=== PATIENT | female | born 1990 | race Caucasian/White ===

== ENCOUNTER 2022-03-18 10:09 | Outpatient (CLI) | payer OTHER, SELFPAY ==
[2022-03-18 15:38] LABS: Albumin* 4.9 g/dL (3.3-5.0); Chloride* 103 mmol/L (96-114); Sodium* 138 mmol/L (135-149)
[2022-03-18 15:39] LABS: Potassium* 4.6 mmol/L (3.6-5.1)
[2022-03-18 15:40] LABS: Cholesterol* 179 mg/dL (90-199)
[2022-03-18 15:41] LABS: Alanine Aminotransferase* 13 U/L (4-35); Alkaline Phosphatase* 37 U/L (40-150); Aspartate Amino Transferase* 22 U/L (12-35); Bilirubin Total* 1.3 mg/dL (0.1-1.5); Blood Urea Nitrogen* 16 mg/dL (5-24); Carbon Dioxide* 27 mmol/L (20-32); Creatinine* 0.6 mg/dL (0.5-1.5); Estimated Glomerular Filt Rate 121 ml/min; Glucose* 97 mg/dL (60-115); Triglycerides* 48 mg/dL (40-149)
[2022-03-18 15:42] LABS: Calcium* 9.7 mg/dL (8.4-10.6); HDL Cholesterol* 64 mg/dL (>=50); LDL Cholesterol Calculated 105 mg/dL (<100)
== END 2022-03-18 10:10 | disposition home or self-care (01) ==
PROVIDERS: PCP Family Medicine; Visit Provider Family Medicine
DX: Z00.00 Encounter for general adult medical examination without abnormal findings (principal); Z13.1 Encounter for screening for diabetes mellitus; Z13.6 Encounter for screening for cardiovascular disorders
CPT/HCPCS: 80053; 80061

== ENCOUNTER 2022-03-29 08:24 | Outpatient (CLI) | payer OTHER, SELFPAY ==
--- NOTE | 2022-03-29 08:45 | CRLHL7_ITS ---
For Patients: As a result of the Cures Act, medical imaging exams and procedure reports are released immediately into your electronic medical record. You may view this report before your referring provider. If you have questions, please contact your health care provider. DIGITAL DIAGNOSTIC LEFT MAMMOGRAM USING TOMOSYNTHESIS AND COMPUTER-AIDED DETECTION LEFT BREAST ULTRASOUND CLINICAL HISTORY: LEFT breast lump. COMPARISON: None. TECHNIQUE: Digital LEFT mammogram in two projections. Tomosynthesis and CAD utilized. Real-time ultrasound imaging of LEFT breast with imaging documentation. BREAST COMPOSITION: The breast is extremely dense, which limits the sensitivity of mammography. FINDINGS: 3D CC/MLO LEFT breast mammogram submitted. No suspicious masses or architectural distortion. No adenopathy or suspicious calcifications. Targeted LEFT breast ultrasound performed in the area of concern 3-6 o`clock lower outer quadrant. Normal dense fibroglandular tissue. No findings concerning for malignancy. IMPRESSION: Normal dense tissue. No malignancy. No fibrocystic change or fluid collection. RECOMMENDATIONS: Clinical follow-up. Age-appropriate screening mammography. Results and recommendations discussed with the patient. BI-RADS Category 1: Negative A lay language report of this examination will be provided to the patient. Dictated by Carlos Hazel MD @ 03/29/2022 11:02:22 AM jj/Dictated by: Carlos Hazel MD @ 03/29/2022 11:02:00 AM (Electronically Signed)
--- NOTE | 2022-03-29 09:15 | CRLHL7_ITS ---
For Patients: As a result of the Cures Act, medical imaging exams and procedure reports are released immediately into your electronic medical record. You may view this report before your referring provider. If you have questions, please contact your health care provider. PLEASE SEE DIGITAL DIAGNOSTIC LEFT MAMMOGRAM PERFORMED SAME DAY CRL:rell zacarias/Dictated by: Carlos Hazel MD @ 03/29/2022 10:58:00 AM (Electronically Signed)
== END 2022-03-29 08:25 | disposition home or self-care (01) ==
LOC: MAMMO 08:25
PROVIDERS: PCP Family Medicine; Visit Provider Family Medicine
DX: N63.20 Unspecified lump in the left breast, unspecified quadrant (principal); R92.2 Inconclusive mammogram
CPT/HCPCS: 76642; 77065; G0279

== ENCOUNTER 2022-04-22 08:00 | Outpatient (RCR) | payer OTHER, SELFPAY | END 2022-07-10 13:45 | disposition home or self-care (01) | PROVIDERS: PCP Family Medicine; Visit Provider Family Medicine | DX: M62.81 Muscle weakness (generalized) (principal); Z51.89 Encounter for other specified aftercare | CPT/HCPCS: 97110; 97140; 97161 ==

== ENCOUNTER 2022-06-11 16:15 | Outpatient (CLI) | payer OTHER, SELFPAY | END 2022-06-11 16:16 | disposition home or self-care (01) | LOC: LKVREF 06-14 08:48 | PROVIDERS: PCP Family Medicine; Visit Provider Nurse Practitioner Family | DX: R30.0 Dysuria (principal); N39.0 Urinary tract infection, site not specified | CPT/HCPCS: 87086 ==

== ENCOUNTER 2022-07-15 14:54 | Outpatient (CLI) | payer OTHER, SELFPAY ==
--- NOTE | 2022-07-15 15:00 | CRLHL7_ITS ---
For Patients: As a result of the Century Cures Act, medical imaging exams and procedure reports are released immediately into your electronic medical record. You may view this report before your referring provider. If you have questions, please contact your health care provider. CLINICAL HISTORY: Missing IUD strings TECHNIQUE: 2D smith scale and color Doppler images were acquired of the pelvis using a transvaginal approach. FINDINGS: On transvaginal imaging, the myometrium has a normal uniform echotexture. Intrauterine device is present within the lower uterine segment. The endometrium measures 8 millimeters in the uterine fundus. The left ovary measures 2.9 x 1.4 x 1.6 cm in size and the right ovary measures 4.1 x 2.0 x 2.6 cm. The ovaries demonstrate normal arterial and venous blood flow on color Doppler analysis. Trace physiologic free fluid noted. IMPRESSION: IUD in the lower uterine segment. Dictated by Carlos Hazel MD @ 07/16/2022 9:54:46 AM (Electronically Signed)
== END 2022-07-15 14:55 | disposition home or self-care (01) ==
LOC: US 14:55
PROVIDERS: PCP Family Medicine; Visit Provider Physician Assistant
DX: T83.32XA Displacement of intrauterine contraceptive device, initial encounter (principal)
CPT/HCPCS: 76830

== ENCOUNTER 2022-08-16 16:11 | Outpatient (CLI) | payer OTHER, SELFPAY | END 2022-08-16 16:12 | disposition home or self-care (01) | LOC: NFLDREF 08-18 06:15 | PROVIDERS: PCP Family Medicine; Referring Provider Family Medicine; Visit Provider Obstetrics & Gynecology | DX: Z01.812 Encounter for preprocedural laboratory examination (principal); T83.32XA Displacement of intrauterine contraceptive device, initial encounter; R00.2 Palpitations | CPT/HCPCS: 84443 ==

== ENCOUNTER 2022-08-29 07:48 | Day surgery (SDC) | payer OTHER, SELFPAY ==
[2022-08-29] VITALS (12 sets, daily range): BP systolic 91–108; BP diastolic 63–84; PULSE 65–100; RESP 12–18; TEMP 36.3–36.7; O2SAT 98–100; BMI 21.5
--- NOTE | 2022-08-29 08:03 | SUR.PREOP ---
Patient provided home covid negative results to RN.
[2022-08-29 08:05] LABS: Ur HCG Qualitative* Negative (Negative)
[2022-08-29] MEDS: SODIUM CHLORIDE 0.9 % (FLUSH) 10 ML SYRINGE IVF (08:20)
[2022-08-29] MEDS: LACTATED RINGERS 1000 ML 1,000 ML 100 ML IV (08:20)
--- NOTE | 2022-08-29 10:03 | W.ANESCHARGE ---
Anesthesia Charges Start Date/Time Anesthesia Start Date: 08/29/22 Anesthesia Start Time: 09:20 Stop Date/Time Anesthesia Stop Date: 08/29/22 Anesthesia Stop Time: 10:48
[2022-08-29] MEDS: BUPIVACAINE 0.25% 30 ML INJECTION (10:30)
--- NOTE | 2022-08-29 10:56 | P.GYNPRC_ITS ---
Procedure Note Date Seen: 08/29/22 Procedure Details: PREOPERATIVE DIAGNOSIS: Intra-abdominal IUD POSTOPERATIVE DIAGNOSIS: Intra-abdominal IUD Suspected stage I endometriosis PROCEDURE: Laparoscopy with retrieval of intra-abdominal IUD, peritoneal biopsy SURGEON: Dorothy Murdock MD ANESTHESIA: General IV FLUIDS: 900 mL crystalloid URINE OUTPUT: 150 mL EBL: 5 mL FINDINGS: 1. Upon pelvic exam under anesthesia, the cervix and vagina were normal in appearance. Uterus was mobile and anteverted, of normal size and texture. There were no palpable adnexal masses. 2. Upon laparoscopy, survey of the upper abdomen revealed a normal appearance to the inferior edge of the liver, gallbladder and stomach. The IUD was entangled within the omentum. Bowels were grossly normal appearance, as was the appendix. Survey of the pelvis revealed normal appearance to the uterus. Bilateral tubes and ovaries were normal in appearance. The cul-de-sac exhibited a superficial single macule with a typical appearance of a powder burn lesion near the origin of the right uterosacral ligament. The bladder reflection was normal in appearance. COMPLICATIONS: None PROCEDURE IN DETAIL: Patient was taken to the operating room with IV running. She was positioned in dorsal lithotomy position with her legs fully supported in Yellofin stirrups. General anesthesia was administered. She was prepped and draped in the usual sterile fashion. Bimanual exam was performed for the above- noted findings. Speculum was inserted. A single-toothed uterine manipulator was inserted through the cervix into the lower uterine segment, and affixed to the anterior cervical lip. Speculum was removed. Sullivan catheter was placed. Patient's legs were placed in neutral position. Attention was turned to patient's abdomen. The infraumbilical area was infiltrated with small amount of Marcaine. An infraumbilical incision was made with a scalpel and carried through to the underlying layer of fascia with a hemostat. The 5 mm Fios Kii trocar was assembled with laparoscope within, and insufflator attached. While tenting up the abdomen manually, the trocar was passed through the anterior abdominal wall into the peritoneal cavity. Trocar was removed. Pneumoperitoneum was achieved. Survey of abdomen and pelvis revealed the above-noted findings. Two additional port sites were created. The first was in the patient's left lower quadrant, just superior medial to the left ASIS. The second was a hand's breath superior to and slightly medial to the first. Each was infiltrated with small amount of Marcaine prior to incision. A 5 mm incision was made at each site, making sure the large vessels were out of harm's way. A 5 mm Fios Kii port was inserted at each site, under direct visualization and without complication. The balloon on each of the 3 ports was inflated, holding each in place. The IUD was gently untangled from the surrounding omentum, and was easily removed through the port. The above-described suspected endometriosis in the cul-de-sac was grasped with [place] forceps and tented away from the pelvic sidewall. It was sharply excised with laparoscopic tae. Hemostasis of the excision bed was achieved with monopolar cautery. Small amount of blood the suction from the patient's pelvis. All instruments removed from the ports. Pneumoperitoneum was released. The balloons on each port were deflated, and the ports were removed. Hemostasis of the laparoscopic incisions were achieved with monopolar cautery. The skin of each port site was closed with a subcuticular stitch of 4-0 Monocryl. Surgical glue was applied above this. The uterine manipulator was removed, and hemostasis of the cervix was noted. Sullivan catheter was removed. Patient tolerated procedure well and was returned to recovery area in stable condition.
[2022-08-29] MEDS: OXYCODONE 5 MG TABLET PO (11:46)
== END 2022-08-29 13:09 | disposition home or self-care (01) ==
PROVIDERS: PCP Family Medicine; Visit Provider Obstetrics & Gynecology
PROC: (CPT 58661; principal; 2022-08-29 09:00)
DX: T83.32XA Displacement of intrauterine contraceptive device, initial encounter (principal); N80.3 Endometriosis of pelvic peritoneum
CPT/HCPCS: 58301; 49321; 00840; 36415; 81025; 84703; 86850; 86900; 86901; 88305; A9270; J0330; J1100; J2250; J2370; J2405; J2704; J3010; J3490; J7120

== ENCOUNTER 2023-05-12 18:11 | Emergency (ER) | payer BC, SELFPAY ==
[2023-05-12 18:21] VITALS: BP 119/79; PULSE 89; RESP 14; TEMP 36.9; O2SAT 99; BMI 20.7
--- NOTE | 2023-05-12 18:37 | ED_ITS ---
HPI - Abdominal Pain General Time Seen by Provider: 18:37 Date Seen: 05/12/23 Chief Complaint: Abdominal Pain Stated Complaint: Abdominal pain Time Seen by Provider: 05/12/23 18:24 Source: patient, RN notes reviewed and old records reviewed Mode of arrival: ambulatory Limitations: no limitations History of Present Illness HPI narrative: This 33yo female presents to ED with worsening epigastric pain. She was in clinic today, saw Dr. Vaughan, note reviewed. She has history of suspected ulcers, no confirmation with EGD ever. First time was before migration of IUD and exploratory laparoscopy, second time after. She changed diet/eating habits first time, second time was in conjunction post-surgery and they thought related to oxycodone use and started omeprazole. She was started on pantoprazole, first dose around 4pm today, pain is worsening. No fever, no vomiting. Does feel nausea but thinks that is from the pain worsening. Possible remote chance of but she doubts it. Current pain since Friday. If her clinic note she describes this as a burning sensation, would get relief with belching, did start omeprazole with some relief yesterday. She stated it was a 9 pain like hunger. It was epigastric without radiation. Before she went to the clinic this morning it was more severe but she denied that the pain was waxing and waning. She notes she had 4 bowel movements yesterday which is not usual for her, can tend towards constipation. She did know if that is of bowels were normal consistency, normal color, no floating that maybe has some mucus. She does not drink any significant alcohol. She had a CBC, comprehensive metabolic panel and lipase drawn in clinic. Only the CBC is back. MD elicited complaint: abdominal pain Related Data Previous Rx's Medication Instructions Recorded pantoprazole 40 mg tablet,delayed 40 mg PO QDAY #30 tabs 05/12/23 release sucralfate 1 gram tablet (Carafate) 1 g PO BID #60 tabs 05/12/23 Allergies Allergy/AdvReac Type Severity Reaction Status Date / Time No Known Drug Allergies Allergy Verified 05/12/23 18:21 Review of Systems Status of ROS Reports: 6 or more systems reviewed and unremarkable except as noted in History and below [facility] Medical History (Updated 05/12/23 @ 21:05 by Mackenzie Todd MD) IUD migration ?T83.32XA - Displacement of intrauterine contraceptive device, initial encounter (ICD-10) Normal hysteroscopy ?Z01.89 - Encounter for other specified special examinations (ICD-10) Rh negative status during ?O26.899 - Other specified related conditions, unspecified trimester (ICD-10) ?Z67.91 - Unspecified blood type, rh negative (ICD-10) Normal spontaneous vaginal delivery ?O80 - Encounter for full-term uncomplicated delivery (ICD-10) Surgical History Normal endoscopy History of wisdom tooth extraction ?K08.409 - Partial loss of teeth, unspecified cause, unspecified class (ICD- 10) Family History Paternal Grandmother Breast cancer Father High blood pressure High cholesterol Social History Narrative: Lives in [place] with and 2 kids. 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 Exercises 2 to 3 times a week. Nonsmoker. Alcohol use: 2-3 per week. No recreational drugs. Smoking Status: Never smoker Do you use any of these nicotine containing products: None Second hand tobacco smoke exposure: No How often do you have a drink containing alcohol: 2-3 times a week Alcohol type: wine and hard liquor How many standard drinks containing alcohol do you have on a typical day: 1 or 2 How often do you have six or more drinks on one occasion: Never AUDIT-C Alcohol total score: 3 Non-prescribed substance use: denies use Caffeine: Yes (1-2 c/day) Are you using contraception or practicing any form of control: No (Mirena) service: No Exam Const: Vital Signs, click to edit/add: Vital Signs - 24 hr 05/12/23 18:21 05/12/23 19:17 Temperature 98.5 F Pulse Rate [Pulse Oximeter] 89 Respiratory Rate 14 Blood Pressure [Ri ght Upper Arm] 119/79 Pulse Oximetry 99 98 Oxygen Delivery Me thod Room Air This is a 33-year-old female that is appearing uncomfortable, leaning forward in bed but is able to relax back for me to examine her. Pupils equal round, sclera clear, conjugate gaze. Speech is normal. Neck supple, no masses or adenopathy. Lungs are clear, good air entry, no wheezing or crackles. CV regular rate rhythm, no murmur, normal S1-S2, no S3-S4. Abdomen is flat, normal bowel sounds, definite epigastric pain but not really any right upper quadrant or left upper quadrant pain. No definitive rebound or guarding, certainly no masses noted. Her belly is absolutely not distended. Skin without any rash, no lower extremity edema. Documenting provider has reviewed patient's vital signs: yes Course Course ED Course: Will place an IV, give her some IV fluids, discussed pain management. We will give her 4 mg IV morphine and 4 mg IV Zofran for nausea control. Discussed imaging, we discussed ultrasound as well as CT imaging. Given she has epigastric pain, do wonder about possibility of pancreatitis that could be stemming from gallbladder disease. She has had some recurrent episodes in the past. It certainly could be that this is gastric in nature, may need an EGD which would not be done emergently here nor does not seem to be indicated from current presentation. Will get a full complement of labs, consider imaging with x-ray or CT potentially. Will be ordering a limited abdomen ultrasound to look at the gallbladder. If lipase is elevated, will certainly proceed with CT imaging. Reevaluation(s) Time of Reevaluation #1: 21:01 Reevaluation #1: Reviewed negative abdominal ultrasound. We reviewed that specifically this mostly looks at the gallbladder, she has no evidence of any gallstones or any infection called cholecystitis. Her labs are certainly reassuring, normal C reactive protein, no elevated white blood count, liver enzymes and lipase are normal. Nothing concerning with her urinalysis, negative urine test. Discussed with her and her next steps that we could do in the ER would be to do a flat and upright which looks at the bowels, specifically shows thus any concerns for obstruction, can show as constipation. We also discussed the possibility of doing CT imaging. She is completely comfortable now. She is worried about pain at home, I do think we can give her IV dose of Toradol. Reviewed with her that we really do not like starting any narcotics when we do not have a specific etiology. If there is any possibility of constipation, narcotics can make this worse. They had a chance to discuss, are opting to not do any further imaging of any sort at this time. Will give her the dose of IV Toradol to make sure she has some longer pain control on board. We also discussed that I would try to send in a prescription firm [employer], see if her insurance covers it. We did review Pepto-Bismol or Maalox. She is not having any definite reflux symptoms but this is been a consideration in the pa [facility]. It does sound as if she has had a scope before which did not show any pathology per her report as I was discussing her labs and consideration for further testing. Vital Signs Vital signs: Initial Vital Signs Temperature 98.5 F 05/12/23 18:21 Temperature Source Temporal Artery Scan 05/12/23 18:21 Pulse Rate 89 05/12/23 18:21 Pulse Rhythm Regular 05/12/23 18:21 Respiratory Rate 14 05/12/23 18:21 Blood Pressure 119/79 05/12/23 18:21 Blood Pressure Mean 92 05/12/23 18:21 Blood Pressure Position Sitting 05/12/23 18:21 Pulse Oximetry 99 05/12/23 18:21 Oxygen Delivery Method Room Air 05/12/23 18:21 Vital Signs Temperature 98.5 F 05/12/23 18:21 Pulse Rate 89 05/12/23 18:21 Respiratory Rate 14 05/12/23 18:21 Blood Pressure 119/79 05/12/23 18:21 Pulse Oximetry 99 05/12/23 18:21 Oxygen Delivery Method Room Air 05/12/23 18:21 Temperature 98.5 F 05/12/23 18:21 Pulse Rate 89 05/12/23 18:21 Respiratory Rate 14 05/12/23 18:21 Blood Pressure 119/79 05/12/23 18:21 Pulse Oximetry 98 05/12/23 19:17 Oxygen Delivery Method Room Air 05/12/23 18:21 Medications Administered Medications: Discontinued Medications Generic Name Dose Route Start Last Admin Trade Name Freq PRN Reason Stop Dose Admin Sodium Chloride 1,000 mls @ 500 mls/hr 05/12/23 18:45 05/12/23 19:05 0.9 % Sodium Chloride 1000 Ml IV 05/12/23 20:44 500 mls/hr .Q2H JOVI Administration Ketorolac Tromethamine 15 mg 05/12/23 21:12 05/12/23 21:19 Ketorolac 15 Mg/Ml Inj IVP 05/12/23 21:13 15 mg ONCE ONE Administration Morphine Sulfate 4 mg 05/12/23 18:44 05/12/23 19:05 Morphine 4 Mg/Ml Inj IVP 05/12/23 18:45 4 mg ONCE ONE Administration Ondansetron HCl 4 mg 05/12/23 18:44 05/12/23 19:05 Ondansetron 2 Mg/Ml Inj IVP 05/12/23 18:45 4 mg ONCE ONE Administration MDM - Abdominal Pain Lab Data Attestation: I reviewed the patient's lab results. Labs: Lab Results 05/12/23 05/12/23 05/12/23 Range/Units 18:35 19:05 19:05 WBC 9.07 (4.50-11.00) K/uL RBC 4.74 (4.00-5.20) m/uL Hgb 14.3 (12.0-16.0) gm/dL Hct 42.1 (33.0-51.0) % MCV 89 (80-100) fL MCH 30 (26-34) pg MCHC 34 (32-36) gm/dL RDW Coeff of Gloria 11.3 L (11.5-15.5) % Plt Count 212 (140-440) K/uL Neut % (Auto) 86.9 H (42.0-72.0) % Lymph % (Auto) 9.3 L (20-44) % [place] % (Auto) 3.4 (0.0-11.0) % Eos % (Auto) 0.0 (0.0-7.0) % Baso % (Auto) 0.2 (0.0-3.0) % Neut # (Auto) 7.90 H (1.7-7.0) K/uL Lymph # (Auto) 0.80 L (0.90-2.90) K/uL [place] # (Auto) 0.30 (0.00-0.90) K/UL Eos # (Auto) 0.00 (0.00-0.50) K/uL Baso # (Auto) 0.02 (0.00-0.30) K/uL Abs Immat Gran (auto) 0.02 (0.00-0.30) K/uL Imm/Tot Granulo (auto) 0.2 % Sodium 136 (135-149) mmol/L Potassium 3.5 L (3.6-5.1) mmol/L Chloride 103 (96-114) mmol/L Carbon Dioxide 22 (20-32) mmol/L Anion Gap 11 (7-15) mEq/L BUN 12 (5-24) mg/dL Creatinine 0.6 (0.5-1.5) mg/dL Estimated Creat Clear 132.44 Estimated GFR 121 ml/min Glucose 109 (60-115) mg/dL Lactate 1.2 (0.5-1.9) mmol/L Calcium 9.5 (8.4-10.6) mg/dL Total Bilirubin 0.9 (0.1-1.5) mg/dL Direct Bilirubin Cancelled 0.0 AST 20 (12-35) U/L ALT 13 (4-35) U/L Alkaline Phosphatase 42 (40-150) U/L C-Reactive Protein < 0.5 L (0.5-1.0) mg/dL Total Protein 7.6 (6.0-8.3) g/dL Albumin 5.0 (3.3-5.0) g/dL Lipase 188 (23-300) U/L Urine Color Yellow (Yellow) Urine Appearance Clear (Clear) Urine pH 6.5 (5.0-8.5) Ur Specific [place] 1.025 (1.000-1.030) Urine Protein Negative (Negative) Urine Glucose (UA) Negative (Negative) Urine Ketones Trace A (Negative) Urine Blood 2+ A (Negative) Urine Nitrite Negative (Negative) Urine Bilirubin Negative (Negative) Urine Urobilinogen 0.2 (0.2-1.0) Ur Leukocyte Esterase 1+ A (Negative) Urine RBC 2-5 A (0-2) Urine WBC 2-5 (0-5) Ur Squamous Epith Cells Few (None-Few) Urine Bacteria Few A (None) Urine HCG, Qual Negative (Negative) Imaging Data US - abdomen: Attestation: I have reviewed the pertinent imaging results. Radiologist's impression: Patient: BENOIT ARGUETA Facility:?[facility] Patient ID:?[id number] Site Patient ID:?[id number]. Site :?[id number] Study:?US Abdomen/Pelvis -05/12/2023 7:58:39 PM Ordering Physician:Luther Mann Final Report: INDICATION: Worsening epigastric pain. TECHNIQUE: Ultrasound abdomen limited. Sonographic images of the right upper quadrant were obtained using smith-scale and color Doppler images. COMPARISON: None. FINDINGS: Liver: Normal in size and echotexture. No suspicious masses. No intrahepatic biliary dilatation. Portal vein is patent with blood flow toward the liver. Gallbladder: No stones or sludge. Normal wall thickness. No pericholecystic fluid. Common bile duct: 4 mm. Pancreas: Unremarkable. Right kidney: Normal in size. Normal echotexture and cortex. No suspicious masses, stones, or hydronephrosis. Vasculature: Proximal abdominal aorta and IVC are unremarkable. IMPRESSION: Unremarkable right upper quadrant ultrasound. Dictated by Saúl Mackey MD @ 05/12/2023 8:26:15 PM (Electronic Signature) Discharge Plan Discharge Clinical Impression: Acute epigastric pain Patient Disposition: Home, Self-Care Condition: Stable Instructions: Epigastric Pain (ED) Additional Instructions: Take the pantoprazole as prescribed by clinic. Do recommend follow-up with your provider in clinic with ongoing symptoms. Will see if sucralfate may help your symptoms. Activity Level: Activity as Tolerated Prescriptions: New sucralfate [Carafate] 1 gram tablet 1 g PO BID Qty: 60 0RF No Action pantoprazole 40 mg tablet,delayed release (DR/EC) 40 mg PO QDAY Qty: 30 1RF Follow Up/Referrals: Lucretia Juan DO [Primary Care Provider] - Stand Alone Forms: Style on Screen Info Instructions
[2023-05-12 18:51] LABS: Appearance Urine Clear (Clear); Bilirubin Urine Negative (Negative); Blood Urine 2+ (Negative); Color Urine Yellow (Yellow); Glucose Urine Negative (Negative); Ketones Urine Trace (Negative); Leukocyte Esterase Urine 1+ (Negative); Nitrite Urine Negative (Negative); Protein Urine Negative (Negative); Specific Gravity Urine 1.025 (1.000-1.030); Urobilinogen Urine 0.2 (0.2-1.0); pH Urine 6.5 (5.0-8.5)
--- OUTSIDE RECORDS SUMMARY | 2023-05-12 18:51 | XMS_ITS | Continuity of Care Document ---
Author Name Unknown Organization [facility] Address [address] [address] [place] [address] Phone Care Team Providers Care Screen Print Operator Name Role Phone Leno Fox MD Unavailable Unavailable Allergies, Adverse Reactions, Alerts Substance Reaction Status Criticality No Known Allergies Active No Inform ation Medications Medication Instructions Dosage Effective Dates (start - stop) Status Comments omeprazole 40 mg capsule,delayed release take 1 by Oral route every day Take 30 minutes before breakfast. 1 - Active omeprazole 40 mg capsule,delayed release take 1 by Oral route every day Take 30 minutes before breakfast. 1 - No Longer Active Procedures Procedure Date Ugi Endo; W/bx 1/mx Level Iv-surg Path Gross/micro 22 Established Level 3 Offic Cons New/estab Mod Advance Directives Directive Yes / No Effective Date File Name No Information Encounters Encounter Description Practice Location Reason(s) For Visit Diagnoses Date Provider Providers Copied on Encounter [facility], [address] [address], [place], [id number], [place] tel:[phone] [facility] No Information 2 Dominique Gonzalez. [address] [facility] [facility] [address], [place], [place], [id number], [place]. tel:[phone] [facility], [address] [address], [place], [id number], [place] tel:[phone] [facility] GI Symptoms or Concerns (chief complaint) Oth symptoms and signs involving the circ and resp systemsHiatal herniaOth symptoms and signs involving the circ and resp systemsDiaphra gmatic hernia without obstruction or gangrene 2 Keith Butterfield. [address] [facility], [place], [place], [id number], [place]. [phone] Referring Provider: Referral Self, USE FOR SELF REFERRALS. Established Level 3 [facility], [address] [address], [place], [id number], [place] tel:[phone] [facility] GI Symptoms or Concerns (chief complaint) Globus sensation 2 Dominique Gonzalez. [address] [facility], [facility] [address], [place], [place], [id number], [place]. tel:[phone] Referring Provider: Referral Self, USE FOR SELF REFERRALS. [facility], [address] [address], [place], [id number], [place] tel:[phone] No Information 2 No Information [facility], [address] [address], [place], [id number], [place] tel:[phone] [facility] Globus sensation 2 Donnell Marin. [address] [facility], [facility] [address], [place], [id number], [place]. tel:[phone] [facility], [address] [address], [place], [id number], [place] tel:[phone] [facility] No Information 2 Donnell Marin. [address] [facility], [facility] [address], [place], [id number], [place]. tel:[phone] Offic Cons New/estab Mod [facility], [address] [address], [place], [id number], [place] tel:[phone] [facility] Comment (chief complaint) Globus sensation Jul- 0 Donnell Marin. [address] [facility], [address], [place], [place], [id number], [place]. tel:[phone] Referring Provider: Luis Champion MD, [address] [place], [address]. tel:[phone] [facility], [address] [address], [place], [place], [id number], [place] tel:[phone] [facility] No Information 0 Rose Lamar. [address] [facility], [facility] [address], [place], [place], [address], [place]. tel:[phone] Family History Family Member Type Diagnosis Age At Onset No Information Immunizations Vaccine Date Status Comments SARS-COV-2 (COVID-19) vaccin e, mRNA, spike protein, LNP, preservative free, 100 mcg/0.5mL dose or 50 mcg/0.25mL dose administered Note: [facility] bi -directional interface ; Source: Other Registry SARS-COV-2 (COVID-19) vaccin e, mRNA, spike protein, LNP, preservative free, 100 mcg/0.5mL dose or 50 mcg/0.25mL dose administered Note: [facility] bi -directional interface ; Source: Other Registry SARS-COV-2 (COVID-19) vaccin e, mRNA, spike protein, LNP, preservative free, 100 mcg/0.5mL dose or 50 mcg/0.25mL dose administered Note: [facility] bi -directional interface ; Source: Other Registry tetanus toxoid, reduced diphtheria toxoid, and acellular pertussis vaccine, adsorbed administered Note: [facility] b i-directional interface ; Source: Other Registry Afluria Qd administered Note: [facility] bi-directional interface ; Source: Other Registry Fluzone Quad 6mo or older administered Note: [facility] bi-direct ional interface ; Source: Other Registry tetanus toxoid, reduced diphtheria toxoid, and acellular pertussis vaccine, adsorbed administered Note: [facility] b i-directional interface ; Source: Other Registry Afluria Qd administered Note: [facility] bi-directional interface ; Source: Other Registry Fluzone Quad 6mo or older administered Note: [facility] bi-direct ional interface ; Source: Other Registry Payers Payer name Insurance type Covered alliance party ID Michael ortiz(s) [employer] [facility] [id number] Social History Type Description Quantity Date Captured Comments Alcohol Use Details Unknown Caffeine Use Details Unknown Tobacco Use Status No Information Smoking Status No Information Sex Female Chief Complaint And Reason For Visit No Information Reason For Referral Reason For Referral No Information Plan Of Treatment Date Type Action Status Referral Ordered: EGD Appointment date/timeframe: First Available ordered History Of Present Illness Encounter Date Complaint History Of Prese nt Illness GI Symptoms or Concerns GI Symptoms or Concerns The viral ent is a 31-year-old woman who saw my partner 2 years ago with complaints of a feeling of knot in her upper esophagus. This was presumed to be globus sensation. She was treated with omeprazole and took 40 mg daily for about 3 months. She noticed the symptoms seemed to get better, but then worsened again while she was still taking medication. She is currently not taking the medication. Chart would suggest that she stopped it for a period of time, but restarted it in July of this year. She again describes uncomfortable sensation in her upper esophagus, but does not note any true solid-food dysphagia. She also does not note any definite heartburn or typical reflux symptoms. She is on no other prescription medications. She is a nonsmoker. Alcohol is less than 1 drink a day. Negative family history. Review of systems is completely negative. BMI is 20.3. Comment I had the pleasu re of meeting Ms. Pelon Nix, 29-year-old woman, seen in consultation at the request of Dr. Luis Champion, for evaluation of globus sensation.Pelon tells me that she has had symptoms of a pressure-like sensation or that something is stuck in her throat for the past 5 months. She says this feeling is fairly constant, though can decrease in intensity from [id number]. She denies any overt dysphagia or odynophagia symptoms and has never had food becomes stuck nor has she had to regurgitate or vomit. She denies any heartburn or reflux symptoms overtly.She developed the symptoms spontaneously and went to her primary care physician as well as Dr. Champion, who is an ENT physician. Exams were normal including diagnostic studies, CT scan, and an x-ray. She was tried on famotidine without any improvement in symptoms and was ultimately referred to GI Clinic for next steps.She denies any early satiety, no weight loss, no fever, no abdominal pain, Functional Status Date Functional Assessmen t No Information Instructions Date Instruction Additional Infor nathaly Upper endoscopy to natali ramirez evaluate. We would obtain esophageal biopsies at that time to rule out occult eosinophilic proctitis. Related to Globus sensation 1. Trial of omeprazo le 40 mg twice daily for 1 month.2. If symptoms are improved with this regimen, she will decrease the dose down to 40 mg once a day for a second month and if symptoms are still better, then continue to taper down to 20 mg daily for a month and then try stopping. If symptoms return after she stops or decrease the dose of omeprazole, then she can maintain whatever dose is helpful to her. If there is no improvement with trial of PPI, then she will update us and we will proceed with an endoscopy.Thank you so much for involving me in the care of Ms. Nix. Related to Globus sensation Assessments Type Assessment Date No Information Patient Care Teams Name Effective Dates (start - stop) Status Members No Information
[2023-05-12 18:56] LABS: Ur HCG Qualitative* Negative (Negative)
--- NOTE | 2023-05-12 19:02 | CRLHL7_ITS ---
For Patients: As a result of the Century Cures Act, medical imaging exams and procedure reports are released immediately into your electronic medical record. You may view this report before your referring provider. If you have questions, please contact your health care provider. INDICATION: Worsening epigastric pain. TECHNIQUE: Ultrasound abdomen limited. Sonographic images of the right upper quadrant were obtained using smith-scale and color Doppler images. COMPARISON: None. FINDINGS: Liver: Normal in size and echotexture. No suspicious masses. No intrahepatic biliary dilatation. Portal vein is patent with blood flow toward the liver. Gallbladder: No stones or sludge. Normal wall thickness. No pericholecystic fluid. Common bile duct: 4 mm. Pancreas: Unremarkable. Right kidney: Normal in size. Normal echotexture and cortex. No suspicious masses, stones, or hydronephrosis. Vasculature: Proximal abdominal aorta and IVC are unremarkable. IMPRESSION: Unremarkable right upper quadrant ultrasound. Dictated by Saúl Mackey MD @ 05/12/2023 8:26:15 PM (Electronically Signed)
[2023-05-12] MEDS: MORPHINE 4 MG/ML INJ IVP (19:05)
[2023-05-12] MEDS: 0.9 % SODIUM CHLORIDE 1000 ml 1,000 ML 500 ML IV (19:05)
[2023-05-12] MEDS: ONDANSETRON 2 MG/ML inj 4 MG IVP (19:05)
[2023-05-12 19:06] LABS: Bacteria Urine Few; Squamous Epithelial Cell Urine Few (None-Few)
[2023-05-12 19:17] VITALS: O2SAT 98
[2023-05-12 19:18] LABS: Lactate* 1.2 mmol/L (0.5-1.9)
[2023-05-12 19:21] LABS: Basophils Absolute Auto 0.02 K/uL (0.00-0.30); Basophils Percent Auto 0.2 % (0.0-3.0); Hematocrit 42.1 % (33.0-51.0); Hemoglobin* 14.3 gm/dL (12.0-16.0); Immature Granulocytes Abs Auto 0.02 K/uL (0.00-0.30); Immature Granulocytes Pct Auto 0.2 %; Lymphocytes Percent Auto 9.3 % (20-44); Mean Corpuscular HGB Conc 34 gm/dL (32-36); Mean Corpuscular Hemoglobin 30 pg (26-34); Mean Corpuscular Volume 89 fL (80-100); Monocytes Percent Auto 3.4 % (0.0-11.0); Neutrophils Percent Auto 86.9 % (42.0-72.0); Platelet Count* 212 K/uL (140-440); RDW Coefficient of Variation % 11.3 % (11.5-15.5); Red Blood Count 4.74 m/uL (4.00-5.20); White Blood Count* 9.07 K/uL (4.50-11.00)
[2023-05-12 19:24] LABS: Slide Review Reflex No
[2023-05-12 19:33] LABS: Chloride* 103 mmol/L (96-114)
[2023-05-12 19:34] LABS: Sodium* 136 mmol/L (135-149)
[2023-05-12 19:35] LABS: Potassium* 3.5 mmol/L (3.6-5.1)
[2023-05-12 19:36] LABS: Creatinine* 0.6 mg/dL (0.5-1.5); Est. Creatinine Clearance* 132.44; Estimated Glomerular Filt Rate 121 ml/min
[2023-05-12 19:37] LABS: Alkaline Phosphatase* 42 U/L (40-150); Anion Gap 11 mEq/L (7-15); Aspartate Amino Transferase* 20 U/L (12-35); Bilirubin Total* 0.9 mg/dL (0.1-1.5); Blood Urea Nitrogen* 12 mg/dL (5-24); Carbon Dioxide* 22 mmol/L (20-32); Lipase* 188 U/L (23-300); Total Protein* 7.6 g/dL (6.0-8.3)
[2023-05-12 19:38] LABS: Alanine Aminotransferase* 13 U/L (4-35); Calcium* 9.5 mg/dL (8.4-10.6); Glucose* 109 mg/dL (60-115)
[2023-05-12 20:25] LABS: C Reactive Protein* < 0.5 mg/dL (0.5-1.0)
[2023-05-12] MEDS: KETOROLAC 15 MG/ML inj IVP (21:19)
== END 2023-05-12 21:35 | disposition home or self-care (01) ==
PROVIDERS: Emergency Provider Family Medicine; PCP Family Medicine
DX: R10.13 Epigastric pain (principal)
CPT/HCPCS: 36415; 76705; 80053; 81001; 81025; 82248; 83605; 83690; 85025; 86140; 87086; 94761; 95992; 96374; 96375; 99284; J1885; J2270; J2405; J7030

== ENCOUNTER 2023-05-13 09:43 | Outpatient (CLI) | payer BC, SELFPAY | END 2023-05-13 09:44 | disposition home or self-care (01) | LOC: NFLDREF 05-15 13:30 | PROVIDERS: PCP Family Medicine; Referring Provider Family Medicine; Visit Provider Family Medicine | DX: R10.13 Epigastric pain (principal) | CPT/HCPCS: 87338 ==